=== PATIENT | female | born 1980 | race Caucasian/White ===

== ENCOUNTER 2021-03-06 12:49 | Emergency (ER) | payer OTHER ==
[~2021-03-06 12:49] MED LIST: ACETAMINOPHEN500 M1 PO; ALLEGRA ALLERG180 MG PO; BACLOFEN 10MG T10 MG PO; CARTIA XT300 MG PO; CERTAGEN1 EACH PO; HAIR, SKIN & N1 EACH PO; IBUPROFEN800 MG PO; IMITREX50 MG PO; LINZESS72 MCG PO; RANITIDINE HCL300 MG PO; VITAMIN D250000 UNIT PO
== END 2021-03-06 17:20 | disposition home or self-care (01) ==
LOC: FER 12:49
DX: S40.012A Contusion of left shoulder, initial encounter (principal); S40.011A Contusion of right shoulder, initial encounter; Z88.8 Allergy status to other drugs, medicaments and biological substances; V43.62XA Car passenger injured in collision with other type car in traffic accident, initial encounter
CPT/HCPCS: 73030; J1885